=== PATIENT | female | born 1965 | race Caucasian/White ===

== ENCOUNTER → 2021-01-18 | Outpatient (CLI) | payer OTHER ==
[2021-01-18 12:41] LABS: INR 0.99 (0.9-1.15); Partial Thromboplastin Time 25.4 sec (23.6-33.0)
== END | disposition home or self-care (01) ==
LOC: LAB 12:12
PROVIDERS: ATTEND Nurse Practitioner
DX: R23.3 Spontaneous ecchymoses (principal)
CPT/HCPCS: 36415; 85610; 85730